=== PATIENT | male | born 1980 | race Caucasian/White ===

== ENCOUNTER 2016-09-08 05:51 | Inpatient (IN) | payer OTHER ==
[2016-09-08] MEDS ORDERED: LIDOCAINE 1% 5 ML SDV ONE (06:17)
[2016-09-08] MEDS ORDERED: BUPIVACAINE/EPI 0.5% 30 ML SDV ONE (06:35)
[2016-09-08] MEDS ORDERED: POLYMYXIN B SULFATE 500,000 UNIT/10 ML SYR IRR ONE (06:35)
[2016-09-08] MEDS ORDERED: CALCIUM CHLORIDE 1 GM/10 ML INJ ONE (06:35)
[2016-09-08] MEDS ORDERED: BACITRACIN 50,000 UNITS/10 ML SYR IRR ONE (06:35)
[2016-09-08] MEDS ORDERED: THROMBIN (BOVINE) 5,000 UNIT VIAL TP ONE (06:35)
[2016-09-08] MEDS ORDERED: THROMBIN (RECOMBINANT) 20,000 UNIT SPRAY TP ONE (06:35)
[2016-09-08] MEDS ORDERED: DEXAMETHASONE 4 MG/ML VIAL ONE ×2 (07:13→07:18)
[2016-09-08] MEDS ORDERED: ROCURONIUM 50 MG/5 ML VIAL ONE (07:13)
[2016-09-08] MEDS ORDERED: ROPIVACAINE HCL 150 MG/30 ML INJ ONE (07:14)
[2016-09-08] MEDS ORDERED: PROPOFOL 200 MG/20 ML VIAL ONE ×2 (07:14→07:16)
[2016-09-08] MEDS ORDERED: MIDAZOLAM 2 MG/2 ML VIAL ONE (07:15)
[2016-09-08] MEDS ORDERED: fentaNYL 250 MCG/5 ML INJ ONE (07:16)
[2016-09-08] MEDS ORDERED: clonIDINE 1 MG/10 ML VIAL EP ONE (07:19)
[2016-09-08] MEDS ORDERED: epHEDrine SULFATE 10 MG/ML SYR ONE (08:57)
[2016-09-08] MEDS ORDERED: PHENYLEPHRINE HCL 100 MCG/ML SYR ONE (10:00)
[2016-09-08] MEDS ORDERED: PHENYLEPHRINE 10 MG/ML SDV ONE (10:28)
[2016-09-08] MEDS ORDERED: ONDANSETRON 4 MG/2 ML VIAL ONE (10:46)
[2016-09-08] MEDS ORDERED: ONDANSETRON 4 MG/2 ML VIAL IVP PRN (12:01)
--- NOTE | 2016-09-08 12:14 | POSTOPPROG ---
Post Op Note Date of Operation: 09/08/16 Surgeon: Joyce Moran Dairy Nutrition Specialist: Ramon London SA; GAVIN Thompson Anesthesiologist: Dr. Dunne Anesthesia: GET(General Endotracheal) Pre-op Diagnosis: left shoulder osteoarthritis Post-op Diagnosis: left shoulder osteoarthritis Indication: left shoulder pain Procedure: total left shoulder replacement Inf/Abcess present in the surg proc area at time of surgery?: No EBL: [id number] Complications: none Drains: Carlos Santillan (to suction starting at 1245)
[2016-09-08] MEDS ORDERED: NS 1,000 ML IV SCH (12:15)
--- NOTE | 2016-09-08 12:16 | SOAPPROG ---
SOAP Progress Note Assessment/Plan: Assessment/Plan: 36y/o male s/p left total shoulder replacement - orders as written - discussed MRSA history with ID doctor demonstrator sales, will plan for Vancomycin 1gm x 12 hours for 2 total doses in addition to Ancef - sling, no shoulder external rotation - ice - x-rays pending - anticipate discharge home tomorrow - call with issues/concerns 09/08/16 12:14 Subjective: No pain, left arm is still numb Objective: NAD, well appearing, no distress VSS EOMi, face symmetric incisions clean, dressed; AWILDA in place; sling in place ICD10 Worksheet Patient Problems: Problems Problem Status Onset Cellulitis of right lower extremity without foot Acute MRSA (methicillin resistant Staphylococcus aureus) Acute 12/13/15
[2016-09-08] MEDS: VANCOMYCIN HCL/NORMAL SALINE 250 ML IV SCH (13:03)
[2016-09-08] MEDS: ceFAZolin 2 GM/DEXTROSE 100 ML IV SCH ×2 (15:19→22:57)
[2016-09-08] MEDS: HYDROmorphONE/DILAUDID 4 MG TAB PO PRN ×2 (18:22→22:53)
[2016-09-08] MEDS: metFORMIN SR 500 MG TAB PO SCH (18:22)
[2016-09-08] MEDS: buPROPion XL 150 MG TAB PO SCH (20:11)
[2016-09-08] MEDS: DOCUSATE SODIUM 100 MG CAP PO SCH (20:11)
[2016-09-09] MEDS: VANCOMYCIN HCL/NORMAL SALINE 250 ML IV SCH (00:34)
[2016-09-09] MEDS: ACETAMINOPHEN 325 MG TAB PO PRN ×3 (00:40→12:28)
[2016-09-09] MEDS: HYDROmorphONE/DILAUDID 4 MG TAB PO PRN ×3 (03:24→12:28)
[2016-09-09] MEDS: DOCUSATE SODIUM 100 MG CAP PO SCH (08:03)
[2016-09-09] MEDS: metFORMIN SR 500 MG TAB PO SCH (08:04)
[2016-09-09] MEDS: buPROPion XL 150 MG TAB PO SCH (08:04)
[2016-09-09 08:19] VITALS: O2SAT 91
[2016-09-09] MEDS ORDERED: CETIRIZINE 10 MG TAB PO SCH (09:00)
[2016-09-09 11:48] VITALS: BP 107/66; PULSE 85; RESP 15; TEMP 98.4
[2016-09-09] MEDS ORDERED: VANCOMYCIN HCL/NORMAL SALINE 250 ML IV ONE (13:07)
[2016-09-09] MEDS ORDERED: oxyCODONE IR 5 MG TAB PO PRN (13:08)
--- NOTE | 2016-09-09 13:20 | SOAPPROG ---
SOAP Progress Note Assessment/Plan: Assessment/Plan: 36y/o male day #1 s/p left total shoulder replacement - orders as written - discussed MRSA history with ID doctor director clinical operations yesterday, plan was for Vancomycin 1gm x 12 hours post-operatively in addition to Ancef; ideally patient would receive 24 hour holley-operative coverage (including pre-operative dose if had been given), thus, will add one additional dose of Vancomycin to be administered now - sling, no shoulder external rotation - ice - x-rays show stable hardware and alignment - discharge home today - call with issues/concerns - patient discussed with Dr. Moran 09/09/16 13:08 Subjective: Had increased pain when block wore off overnight. Otherwise doing ok Objective: Vital Signs Temp Pulse Resp BP Pulse Ox 36.9 C 85 15 107/66 91 L 09/09/16 11:47 09/09/16 11:47 09/09/16 11:47 09/09/16 11:47 09/09/16 11:47 09/08/16 09/09/16 09/10/16 05:59 05:59 05:59 Intake Total 2330 1400 Output Total 760 Balance 1570 1400 NAD, well appearing, no distress EOMi, face symmetric MAEx4 AWILDA removed without issue incision clean, dressed ICD10 Worksheet Patient Problems: Problems Problem Status Onset Cellulitis of right lower extremity without foot Acute MRSA (methicillin resistant Staphylococcus aureus) Acute 12/13/15
--- NOTE | 2016-09-09 15:55 | GOP ---
[f rep st] OPERATIVE REPORT DATE OF OPERATION: 09/08/2016 SURGEON: Joyce Moran MD WASTE/MATERIALS EXCHANGE SPECIALIST: Lazaro Chapman, LANDSCAPING AND GROUNDSKEEPING LABORER, [facility]. ANESTHESIA: General with interscalene block. PREOPERATIVE DIAGNOSIS: Severe osteoarthritis, left shoulder. POSTOPERATIVE DIAGNOSIS: Severe osteoarthritis, left shoulder. PROCEDURE PERFORMED: Left total shoulder arthroplasty with biceps tenodesis. FINDINGS: Preoperative x-rays of the patient's left shoulder demonstrated severe degenerative arthr itis with complete loss of the glenohumeral joint space. There was a large inferior osteophyte on t he humeral head. An MRI scan also confirmed an intact rotator cuff. At the time of surgery, the sh oulder was exposed through a deltopectoral incision. The subscap was taken down with a fragment of the lesser tuberosity. The biceps tendon was identified in the bicipital groove, and a soft-tissue tenodesis was performed to the upper border of the pectoralis tendon. This was performed using #2 F iberWire. The shoulder joint was then exposed and a [employer] total shoulder arthroplasty was pe rformed. A humeral head cut was made in the appropriate degree of inclination and version, and then the humerus was retracted to expose the glenoid. All soft tissue was removed from around the perip adrianne of the glenoid, and then the glenoid was sized to a 48 mm size. The central PEG hole was drill ed in the center of the glenoid, and then the 3 peripheral drill holes were made using the guide. A trial reduction was performed with a 48 mm glenoid component, and a satisfactory fit was noted. Th e peripheral PEG holes were cemented, and then the cross-linked polyethylene component was positione d and held while the cement hardened. Bone graft was packed around the central PEG prior to inserti on of the glenoid component. The component was stable on the bony construct of the glenoid. Once t he cement had hardened, our attention was turned back to the humeral head. The humerus was reamed u p to a size 12 and then the 8, 10 and 12 broaches were utilized. A trial reduction was performed wi th the [address] and a 52 x 18 mm round humeral head. Excellent coverage of the humerus was obtained with the sizing. The shoulder was taken through a range of motion and noted to be stable. The shoulder could be subluxed posteriorly approximately 50% of the width of the humerus, but it re duced spontaneously. The trial components were then removed and the size 12 stem was inserted. The 52 x 18 mm humeral head was placed on the taper of the stem. It was impacted, and the shoulder was reduced. The lesser tuberosity was then reattached using #2 FiberWire through drill holes. Excell ent repair of the lesser tuberosity was achieved. The rotator cuff. The rotator interval was also closed using #2 FiberWire in a uxzwro-[id number] fashion. ESTIMATED BLOOD LOSS: 250 cc. DESCRIPTION OF PROCEDURE: SECOND WASTE/MATERIALS EXCHANGE SPECIALIST: Joyce Moran MD. PROCEDURE: The patient was taken to the operating room, placed in supine position on the operating table. Following induction of adequate general and interscalene anesthesia, the shoulder and arm we re prepped and draped in the usual sterile manner. The patient received 2 g of IV Ancef. The patie nt was positioned in the beach chair position. A deltopectoral approach to the shoulder was made. An incision was made extending from the inferior border of the clavicle across the coracoid process and down to the axillary fold. An incision was carried down through the subcutaneous tissue exposin g the deltopectoral interval. The deltoid was mobilized, and the cephalic vein was retracted latera lly with the deltoid. The clavipectoral fascia was incised, and then the coracoid musculature was r etracted medially. The bicipital groove was located, and the biceps tendon was retrieved from withi n the bicipital groove. A soft-tissue tenodesis of the biceps tendon was performed to the upper bor gina of the pectoralis major using #2 FiberWire in a [id number]-bwsev fashion. The biceps was then in cised, and our attention was turned to the subscapularis. Using a large curved osteotome, an osteot raffi of the lesser tuberosity was performed. The subscapularis was then mobilized from the underlyin g capsule. Care was taken throughout this procedure to protect the axillary nerve inferiorly. The subscap was tagged with 3 #2 FiberWires. It was retracted medially with the coracoid musculature. A capsulotomy was then performed removing the anterior capsule and extending the capsulotomy inferio rly to the 7 or 8 o'clock position. Again, during this portion of the procedure, the axillary nerve was protected. Once adequate soft-tissue releases had been performed, the arm was extended and add ucted, and the humeral head was delivered into the wound. Using the neck cutting guide, the humeral head osteotomy was performed. The head was cut along the anatomic neck. Osteophytes were removed from around the periphery of the humeral head prior to the osteotomy to confirm the location of the anatomic neck. The cutting guide was then removed, and our attention was turned to the glenoid. Th e humerus was retracted with a Fukuda retractor and a Bankart and Hohmann retractor were also insert ed posteriorly to expose the glenoid. Once adequate exposure had been obtained, all the labral tiss ue was removed from around the periphery of the glenoid. Once the bony outline of the glenoid was w ell exposed, the center of the glenoid was located and a drill pin was placed in the center of the g lenoid. The center PEG was then drilled, and once this was completed, the reamer was inserted. Ayanna or to inserting the reamer, the remaining cartilage along the anterior aspect of the glenoid was rem ericka with a curette. There was not significant bone loss posteriorly. The glenoid was then reamed with a 48 mm reamer creating a nice flat surface. Next, the PEG guide was inserted, and the superio r and 2 inferior PEG holes were drilled. A trial reduction was then performed. The trial component was removed and the real component was opened. Surgicel and thrombin were packed in the bone holes to obtain hemostasis. A batch of polymethylmethacrylate cement was mixed, and then the 3 periphera l holes were prepared with cement and the central hole was left without cement. A bone graft was pa cked around the central PEG. The component was inserted and pressure was held on the components whi le the cement hardened. There was excellent stability of the component against the bony construct. Once the cement was hard, our attention was turned back to the humerus. The humerus was reamed up to a size 12, and then the broaches were inserted. Care was taken to assure the appropriate version of the humeral stem. The trial was reduction was performed as noted above in the findings, and the n all the trial components were removed, and all the surfaces were irrigated thoroughly prior to ins erting the size 12 stem. The head component was opened and placed on the taper of the stem and impa cted. The humeral head was then reduced into the glenoid. Excellent range of motion and stability was noted. The wound was again irrigated out, and then the subscap was reattached through bone tunn els using #2 FiberWire. The rotator interval was closed using #2 FiberWire in a [id number] fas hion. The subcutaneous tissues were closed using 2-0 Vicryl, and the skin was closed using letitia. A drain was left in the depths of the wound. Platelet gel was used in the deep and superficial po rtions of the wound to enhance wound healing. Sterile dressings were applied. The patient tolerate d the procedure well, and there were no complications. Estimated blood loss 250 cc. Final sponge, needle counts were correct. The patient was transferred to the recovery room in good condition. /[id number]/MODL
[2016-09-21] MEDS ORDERED: TESTOSTERONE IM 100 MG/ML SYRINGE IM SCH (13:00)
== END 2016-09-09 15:05 | disposition home or self-care (01) | DRG 483 ==
LOC: F3N 05:51
PROVIDERS: ADMIT Orthopaedic Surgery; ATTEND Orthopaedic Surgery
DX: M19.012 Primary osteoarthritis, left shoulder (principal); M75.22 Bicipital tendinitis, left shoulder; G47.33 Obstructive sleep apnea (adult) (pediatric); Z86.14 Personal history of Methicillin resistant Staphylococcus aureus infection
CPT/HCPCS: 97161-GP; 97165-GO; C1713; J0690; J0735; J1100; J2250; J2370; J2405; J2704; J2795; J3010; J3370